=== PATIENT | female | born 1985 | race American Indian/Alaskan Native ===

== ENCOUNTER 2017-07-24 04:50 | Inpatient (IN) | payer MEDICAID ==
[2017-07-24 05:06] VITALS: BMI 27.3
[2017-07-24] MEDS ORDERED: ceFAZolin IV 2 gm in Dextrose 2 GM/50 ML BAG IVPB ONE (05:09)
[2017-07-24] MEDS: Lactated Ringer's 1,000 ML IV SCH ×3 (05:45→23:53)
[2017-07-24 06:21] LABS: BASO % 0.5 % (0.0-2.0); EOS # 0.1 K/uL (0.0-0.7); EOS % 0.8 % (0.0-4.0); HEMATOCRIT 38.2 % (34.0-47.0); LYMPH # 2.3 K/uL (1.0-4.3); LYMPH % 22.2 % (20.0-40.0); MEAN CELL VOLUME 89.4 fl (81.0-99.0); MEAN CORPUSCULAR HEMOGLOBIN 29.6 pg (27.0-31.0); MEAN PLATELET VOLUME 10.2 fl (7.2-11.7); MONO # 0.7 K/uL (0.0-0.8); MONO % 6.4 % (0.0-10.0); NEUT # 7.3 K/uL (1.8-7.0); NEUT % 70.1 % (50.0-75.0); NRBC % 0.1 % (0.0-0.0); RED CELL DISTRIBUTION WIDTH 14.1 % (11.5-14.5); WHITE BLOOD COUNT 10.4 K/uL (4.8-10.8)
--- NOTE | 2017-07-24 07:13 | OBADHP ---
Datetime: 07/24/2017 07:04 IP Adm Impression Other: Previous Section Admit Comment, IP Provider: IUP at 39wks with Previous Section Denies VB or LOF. PNC with [facility]. Uncomplicated cause. Denies . TOCO- irregular FHR- Category 1, Assessment: IUP at 39wks Previous Section. Plan: Admit for a Repeat Section. Pelvic Type - PN: Adequate Extremities - PN: Normal Abdomen - PN: Normal Breast - PN: Normal Lungs - PN: Normal Heart - PN: Normal General - PN: Normal Presentation-Admit: Vertex FHR - Baseline A Provider: 120s Membranes, Provider: Intact Contraction Comments Provider: Occasional Comments, ACOG Physical Exam: Abd: Soft, NT, Bs- present. Gestation - Est Wks by US: 39.0 IP Chief Complaint: Scheduled Section NICHD Variability Prov Fetus A: Moderate 6-25bpm NICHD Accel Fetus A IP Provider: [id number] FHR Category Provider Fetus A: Category I NICHD Decel Fetus A IP Provider: None Genitourinary Exam: Normal EGA AdmitDate IP: 39.0 IP Adm Impression: Term, intrauterine ; No Active Labor IP Admit Plan: Admit to unit; Initiate Section protocol
[2017-07-24] MEDS ORDERED: Lactated Ringer's 1,000 ML IV SCH (07:45)
[2017-07-24] MEDS ORDERED: Morphine 1 mg/ml preservative-free Inj(Duramorph) ONE (07:51)
[2017-07-24] MEDS ORDERED: ePHEDrine 50 mg/ml Inj ONE (07:51)
[2017-07-24] MEDS ORDERED: Phenylephrine 10 mg/ml Inj ONE (07:52)
[2017-07-24] MEDS ORDERED: DiphenhydrAMINE 50 mg/ml Inj IVP PRN ×2 (09:05→12:57)
[2017-07-24] MEDS ORDERED: Cellulose Hemostat 2X3 Sheet ONE (09:10)
[2017-07-24] MEDS ORDERED: DiphenhydrAMINE 50 mg/ml Inj ONE (09:51)
[2017-07-24] MEDS ORDERED: Oxycodone/Acetaminophen 5/325 mg Tab PO PRN ×4 (09:52→12:57)
[2017-07-24] MEDS ORDERED: Bisacodyl 5mg EC Tab PO PRN ×2 (09:52→12:57)
--- NOTE | 2017-07-24 10:12 | OBDS ---
DELIVERY PERSONNEL Delivery Doctor: Jenn Green MD Rodeo Rider: Estrella Blair RN Anesthesiologist: Haven Navarro MD MATERNAL INFORMATION Delivery Anesthesia: Spinal Medications in Delivery: Pitocin 20u/1000mL of NS Placenta Cultured: No Maternal Complications: None Provider Comments: Uncomplicated Repeat section with delivery of a viable male infant scores of 9 and 9. Uterus closed in 2 layer with good hemostasis. LABOR SUMMARY EDC: 07/31/2017 00:00 No. Babies in Womb: 1 Attempted: No Labor Anesthesia: None LABOR INFORMATION Reason for Induction: Not Applicable Oxytocin: N/A Group B Beta Strep: Negative Antibiotics # of Doses: Ancef 2gm Antibiotics Time of Last Dose: 807 Steroids Given: None Reason Steroids Not Administered: Not Applicable MEMBRANES Membranes Rupture Method: Artificial Rupture of Membranes: 07/24/2017 08:47 Length of Rupture (hrs): 0.02 Amniotic Fluid Color: Clear Amniotic Fluid Amount: Moderate Amniotic Fluid Odor: Normal STAGES OF LABOR Stage 3 hrs: 0 Stage 3 min: 1 CSECTION DELIVERY Primary Indication: Repeat Elective CSection Urgency: Elective CSection Incidence: Repeat Labor: No Labor Elective: Elective CSection Incision: Lower Uterine Transverse Uterine Closure: Double-layer closure BABY A INFORMATION Infant Delivery Date/Time: 07/24/2017 08:48 Method of Delivery: Born in Route : No : N/A Forceps: N/A Vacuum Extraction: N/A Shoulder Dystocia : No SHOULDER DYSTOCIA BABY A Delivery Date/Time: 07/24/2017 08:48 PRESENTATION/POSITION BABY A Presentation: Cephalic Cephalic Presentation: Vertex Breech Presentation: N/A PLACENTA INFORMATION BABY A Placenta Delivery Time : 07/24/2017 08:49 Placenta Method of Delivery: Manual Removal Placenta Status: Delivered SCORES BABY A Heart Rate 1 min: >100 bpm Resp Effort 1 min: Good Cry Reflex Irritability 1 min: Cough or Sneeze or Pulls Away Muscle Tone 1 min: Active Motion Color 1 min: Body [place], Extremities Blue Resuscitation Effort 1 min: N/A SCORE 1 MIN: 9 Heart Rate 5 min: >100 bpm Resp Effort 5 min: Good Cry Reflex Irritability 5 min: Cough or Sneeze or Pulls Away Muscle Tone 5 min: Active Motion Color 5 min: Body [place], Extremities Blue Resuscitation Effort 5 min: N/A SCORE 5 MIN: 9 INFANT INFORMATION BABY A Gestational Age at Delivery: 39.0 Gestational Status: Term Outcome : Liveborn Condition : Stable Infant Sex: Male IDENTIFICATION/MEDS BABY A ID Band Number: [id number] WEIGHT/LENGTH BABY A Birthweight (gms): 2720 Weight (lb): 6 Weight (oz): 0 Infant Length Inches: 18.50 Length cms: 47.0 CORD INFORMATION BABY A No. Cord Vessels: 3 Nuchal Cord : N/A Cord Blood Taken: Yes Suction: Mouth; Nose
--- NOTE | 2017-07-24 10:18 | PCM.SURG1 ---
Surgeon's Initial Post Op Note - Surgeon's Notes Surgeon: Dr Green Traffic Personnel Supervisor: Ibeth Grace ( [facility] Practice Resident ) Type of Anesthesia: Spinal Anesthesia Administered By: Dr Navarro Pre-Operative Diagnosis: IUP at 39wks with Previous Section,. Denies Operative Findings: Live male with BW of 2720gms, scores of 9 and 9 , Fundal Placenta, Clear amniotic fluid, Bladder adhesions to the lower uterine segment. The uterus, fallopian tubes and ovaries ( Bilaterally )appeared normal. EBL- 600mls. IV Fluids- 1500mls. Urine output- 200mls Post-Operative Diagnosis: Same as preop diagnosis Operation Performed: Repeat Low Transverse Section Specimen/Specimens Removed: Umbilical cord blood Estimated Blood Loss: EBL {In ML}: 600 Blood Products Given: N/A Date of Surgery/Procedure: 07/24/17 Time of Surgery/Procedure: 10:19
--- NOTE | 2017-07-24 11:20 | OP ---
PROCEDURE DATE: 07/24/2017 PREOPERATIVE DIAGNOSES: Intrauterine at 39 weeks with previous section. Denies vaginal after section. POSTOPERATIVE DIAGNOSES: Intrauterine at 39 weeks with previous section. Denies vaginal after section. PROCEDURE: A repeat low-transverse section, performed on 07/24/2017. SURGEON: Young Green MD. CAT BREEDER: Dr. Ibeth Grace, [facility] [place] [facility]. TYPE OF ANESTHESIA: Spinal. ANESTHESIA ADMINISTERED BY: Morro Navarro MD. FINDINGS: A live male infant with weight of 2720 grams. Apgars scores of 9 in the first and fifth minutes respectively. Placenta was fundal with clear amniotic fluid. The bladder was drawn up to cover portion of the lower uterine segment. The uterus, fallopian tubes and ovaries appeared normal. IV FLUID INTAKE: 1500 mL. ESTIMATED BLOOD LOSS: 600 mL. URINE OUTPUT: 200 mL. COMPLICATIONS: There were no complications. DESCRIPTION OF PROCEDURE: After obtaining informed consent detailing the risks, benefits and alternatives to section and having all her questions answered, the patient was sent to the OR and sat on the OR table. After adequate spinal anesthesia, the patient was placed in a supine position with a left lateral tilt. The patient was prepped and draped in the usual sterile fashion. The previous Pfannenstiel incision scar was excised using a scalpel and the incision was extended through the subcutaneous tissues so the rectus fascia was identified. A transverse incision was made in the rectus fascia and this was extended to both sides by means of a blunt dissection and sharp dissection with the Chase scissors. The rectus fascia was lifted off the underlying rectus muscles both superiorly and inferiorly and the rectus muscle was in the midline to expose the peritoneum, which was carefully dissected and entered using Metzenbaum scissors and with good visualization of the bladder. Once the abdominal cavity was entered, the above findings were noted. The bladder had migrated to the lower half of the lower uterine segment and this was dissected off and retracted inferiorly to expose the lower uterine segment. Using a scalpel, a transverse low incision was made in the lower uterine segment and the incision was sent through the myometrial layers so the amniotic membranes were seen. The amniotic membranes were then ruptured with a pickup forceps and the baby which was in cephalic presentation was removed. Baby cried immediately after . The three-vessel cord was clamped and cut and the baby was given to the nurse. The umbilical blood was collected for analysis and the Placenta was manually removed from the uterine cavity. The uterus was then brought out of the abdominal cavity and the uterine cavity cleaned of all debris using dry laparotomy pads. The uterine incision was then closed in 2 layers using Vicryl #0. The fat layer in a running locked fashion and the second layer in running fashion imbricating the first layer. This was performed until hemostasis was noted. Irrigation of the pelvis with normal saline was performed at this point. After which, the uterus was returned into the abdominal cavity. The uterine incision was reinspected for any hemorrhage and once this has been assessed, attention was turned to the anterior abdominal wall, which was closed in layers with 3-0 Vicryl for the peritoneum and the rectus muscles. The rectus fascia was reapproximated using Vicryl #0. The subcutaneous tissue was brought together using #2-0 plain catgut. The skin was repaired with subcuticular suturing using #4-0 Vicryl. All counts of laparotomy pads, needles and instruments used were correct x3. The patient was sent to the recovery room awake and in stable condition. Young Green MD
[2017-07-24] MEDS: ceFAZolin IV 2 gm in Dextrose 2 GM/50 ML BAG IVPB SCH (16:57)
[2017-07-24] MEDS ORDERED: ceFAZolin IV 2 gm in Dextrose 2 GM/50 ML BAG IVPB SCH (17:00)
[2017-07-25] MEDS: ceFAZolin IV 2 gm in Dextrose 2 GM/50 ML BAG IVPB SCH ×2 (01:07→09:43)
[2017-07-25 06:51] LABS: HEMATOCRIT 33.3 % (34.0-47.0); MEAN CELL VOLUME 87.5 fl (81.0-99.0); MEAN CORPUSCULAR HEMOGLOBIN 29.9 pg (27.0-31.0); MEAN CORPUSCULAR HGB CONC 34.2 g/dL (33.0-37.0); RED CELL DISTRIBUTION WIDTH 14.3 % (11.5-14.5); WHITE BLOOD COUNT 13.4 K/uL (4.8-10.8)
[2017-07-26 05:42] LABS: HEMATOCRIT 34.9 % (34.0-47.0); MEAN CELL VOLUME 89.5 fl (81.0-99.0); MEAN CORPUSCULAR HEMOGLOBIN 29.2 pg (27.0-31.0); MEAN CORPUSCULAR HGB CONC 32.7 g/dL (33.0-37.0); RED CELL DISTRIBUTION WIDTH 14.4 % (11.5-14.5)
--- NOTE | 2017-07-26 07:35 | OBPPN ---
Datetime: 07/26/2017 06:41 PP Pain Prov: Within normal limits PP Nausea Prov: Denies PP Flatus Prov: Yes PP BM Prov: Yes PP Heart Prov: Normal PP Lungs Prov: Normal PP Abdomen/Uterus Prov: Normal PP Lochia Prov: Normal PP Extremities Prov: Normal PP C/S Incision Prov: Normal PP Impression Prov: Normal progression PP Plan Prov: Continue present management PP Progress Note Prov: 32 y/o F, now , on POD 2. Pt had a on 07/24/17 with NO compl ications. Pt seen and examined by bedside. Pt reports feeling well. Pain is intermittent, can be 8/10 and is controlled with provided medications. Pt is urinating and ambulating without difficulties. Lo ramana is described as same as menses with some small clots. Pt is pumping breast for milk, her baby is at [facility] for cardiac evaluation. Pt passing gasses per rectum and had a bowel movemen t. Pt afebrile and tolerating PO. Pt denies headache, visual disturbances, CP, SOB, N/V, urinary comp laints and rash. PE: Gen: Pt is resting comfortably on bed, not in acute distress. HEENT: oral mucosa moist. CV: S1 and S2 present, rythm is regular. Lungs: CTA B/L. Abdomen: Soft, mildly tender, non-distended. Fundus of uterus firm and below umbilicus. Incision i s clean, dry and intact with no erythema or suppuration. EXT: no peripheral edema, gino's sign negative. NEURO/PSYCH: no grossly focal deficit, preserved affect and mood. A/P: 32 y/o F on POD 2, recovering well from C/S. - Continue medical management. - Pt encouraged for ambulation and . Case discussed with Dr Green, OB neon glass blower. Manuelito PGY-1. IP PP Procedures: None Vital Signs Provider PP: Reviewed
--- NOTE | 2017-07-26 11:58 | OBPPN ---
Datetime: 07/26/2017 06:41 PP Progress Note Prov: 32 y/o F, now , on POD 2. Pt had a on 07/24/17 with NO compl ications. Pt seen and examined by bedside. Pt reports feeling well. Pain is intermittent, can be 8/10 and is controlled with provided medications. Pt is urinating and ambulating without difficulties. Lo ramana is described as same as menses with some small clots. Pt is pumping breast for milk, her baby is at [facility] for cardiac evaluation. Pt passing gasses per rectum and had a bowel movemen t. Pt afebrile and tolerating PO. Pt denies headache, visual disturbances, CP, SOB, N/V, urinary comp laints and rash. PE: Gen: Pt is resting comfortably on bed, not in acute distress. HEENT: oral mucosa moist. CV: S1 and S2 present, rythm is regular. Lungs: CTA B/L. Abdomen: Soft, mildly tender, non-distended. Fundus of uterus firm and below umbilicus. Incision i s clean, dry and intact with no erythema or suppuration. EXT: no peripheral edema, gino's sign negative. NEURO/PSYCH: no grossly focal deficit, preserved affect and mood. A/P: 32 y/o F on POD 2, recovering well from C/S. - Continue medical management. - Pt encouraged for ambulation and . Case discussed with Dr Green, OB refrigeration supervisor. Manuelito PGY-1. The patient was seen with resident I agree with note
[2017-07-26] MEDS: Lactated Ringer's 1,000 ML IV SCH (14:26)
--- NOTE | 2017-07-27 08:46 | OBDCSUM ---
Datetime: 07/27/2017 06:11 Discharged to, Provider: Home Follow up at, Provider: Clinic Disch Instr Activity: Normal activity; May be up to bathroom; May be up for meals; May Shower Disch Instr Diet: Regular Discharge Instructions, Provider: Routine instructions given Discharge Diagnosis, Provider: Term Delivered Discharge Time: 07/27/2017 10:00 Follow up in weeks, Provider: within 1 week Contraception discussed, Prov: No Disch Activity Restrictions: No exercising; No lifting; No driving; Minimize walking; Minimize stair -climbing; No sexual activity; Nothing in vagina - [place], tampons, douche Discharge Comment, Provider: -Continue PNV 1 tab PO daily. -Ibuprofen 600mg PO PRN for moderate pain, Percocet 5/325mg for severe pain. -Keflex 500mg Q8H for wound infection prophylaxis. -Ambulate with caution, no heavy lifting, nothing per vagina for 6 weeks, OTC stool softener recom mended. -If excessive bleeding or fever despite Tylenol, immediately go to ER. - F/U with clinic within 1 week for wound check; and within 4-6 weeks for post- evaluation. OB Hospitalist on-call. Pt seen on rounds this AM, Agree with note. SARA
--- NOTE | 2017-07-27 08:46 | OBPPN ---
Datetime: 07/27/2017 06:09 PP Pain Prov: Within normal limits PP Nausea Prov: Denies PP Flatus Prov: Yes PP BM Prov: Yes PP Heart Prov: Normal PP Lungs Prov: Normal PP Abdomen/Uterus Prov: Normal PP Lochia Prov: Normal PP CVA Tenderness Prov: Normal PP Extremities Prov: Normal PP C/S Incision Prov: Normal PP Impression Prov: Normal progression PP Plan Prov: Discharge PP Progress Note Prov: 32 y/o F, now , on POD 3. Pt had a on 07/24/17 with NO compl ications. Pt seen and examined by bedside. Pt feeling well, pain is well controlled with medications. Pt is urinating and ambulating with no difficulties. Lochia is now less than menses. Pt is pumping b reast for milk, her baby is at [facility] for cardiac evaluation. Pt passing gasses per rec stacey and had a bowel movement already. Pt afebrile and tolerating PO. Pt denies headache, visual distu rbances, CP, SOB, N/V, urinary complaints and rash. PE: Gen: Pt is resting comfortably on bed, not in acute distress. HEENT: oral mucosa moist. CV: S1 and S2 present, rhythm is regular. Lungs: CTA B/L. Abdomen: Soft, mildly tender, non-distended. Fundus of uterus firm and below umbilicus. Incision i s clean, dry and intact but mildly tender with no erythema or suppuration. EXT: no peripheral edema, Teodora's sign negative. NEURO/PSYCH: no grossly focal deficit, preserved affect and mood. A/P: 32 y/o F on POD 3, recovering well from C/S. -Will discharge pt today. -Continue PNV 1 tab PO daily. -Ibuprofen 600mg PO PRN for moderate pain, Percocet 5/325mg for severe pain. -Keflex 500mg Q8H for wound infection prophylaxis. -Ambulate with caution, no heavy lifting, nothing per vagina for 6 weeks, OTC stool softeners lisa mmended. -If excessive bleeding or fever despite Tylenol, go to ER. - F/U with clinic within 1 week for wound check; and within 4-6 weeks for post- evaluation. Case discussed with OB acetone recovery worker. Manuelito PGY-1. OB Hospitalist on-call. Pt seen on rounds this AM, Agree with note. SARA ZAMORA PP Procedures: None Vital Signs Provider PP: Reviewed
[2017-07-27 18:57] VITALS: BP 118/77; PULSE 82; RESP 20; TEMP 97.4; O2SAT 98
== END 2017-07-27 12:15 | disposition home or self-care (01) | DRG 371 ==
LOC: H.EROB2 04:50 → H.L&D 05:19 → H.OB/GYN 12:30
PROVIDERS: ADMIT Obstetrics & Gynecology; ATTEND Obstetrics & Gynecology
PROC: 10D00Z1 Extraction of Products of Conception, Low, Open Approach (ICD-10-PCS; principal; 2017-07-24)
PROC: 4A1HXCZ Monitoring of Products of Conception, Cardiac Rate, External Approach (ICD-10-PCS; 2017-07-24)
DX: O34.219 Maternal care for unspecified type scar from previous cesarean delivery (principal); N85.8 Other specified noninflammatory disorders of uterus; Z37.0 Single live birth; Z3A.39 39 weeks gestation of pregnancy